=== PATIENT | female | born 1975 | race African-American/Black ===

== ENCOUNTER 2023-02-19 19:59 | Emergency (ER) | payer MEDICAID ==
[~2023-02-19] VITALS: Ht 162.6 cm; Wt 75.0 kg
[2023-02-19 20:27] VITALS: BP 110/70; PULSE 58; RESP 20; TEMP 98.6
[2023-02-19] MEDS ORDERED: KETOROLAC TROMETHAMINE 30 MG/ML VIAL IM ONE (21:00)
== END 2023-02-19 22:03 | disposition left against medical advice (07) ==
LOC: EMS 20:01
DX: M25.572 Pain in left ankle and joints of left foot (principal); M25.512 Pain in left shoulder; W18.39XA Other fall on same level, initial encounter; Y93.89 Activity, other specified; Y92.89 Other specified places as the place of occurrence of the external cause; Y99.8 Other external cause status
CPT/HCPCS: 99283; Z7502